=== PATIENT | male | born 1950 | race Caucasian/White ===

== ENCOUNTER → 2018-03-18 | Outpatient (CLI) | payer OTHER ==
[2018-03-18 12:13] LABS: HEMATOCRIT 38.7 % (42.0-52.0); HEMOGLOBIN 13.1 g/dl (13.5-17.5); MEAN CORPUSCULAR HEMOGLOBIN 30.7 pg (27.0-33.0); MEAN CORPUSCULAR HGB CONC 33.9 g/dl (32.0-36.5); MEAN CORPUSCULAR VOLUME 90.6 fl (80.0-96.0); PLATELET COUNT, AUTOMATED 239 10^3/uL (150-450); RED BLOOD COUNT 4.27 10^6/uL (4.30-6.10); RED CELL DISTRIBUTION WIDTH 13.1 % (11.5-14.5); WHITE BLOOD COUNT 7.3 10^3/uL (4.0-10.0)
[2018-03-18 12:46] LABS: ESTIMATED AVERAGE GLUCOSE 126 MG/DL (60-110); TESTOSTERONE 324 NG/DL (241-827)
[2018-03-18 12:52] LABS: ALBUMIN/GLOBULIN RATIO 1.29 (1.00-1.93); ALKALINE PHOSPHATASE 87 U/L (45-117); ALT/SGPT 13 U/L (12-78); ANION GAP 8 MEQ/L (8-16); AST/SGOT 16 U/L (7-37); BILIRUBIN,TOTAL 0.4 MG/DL (0.2-1.0); BLOOD UREA NITROGEN 29 MG/DL (7-18); CALCIUM LEVEL 8.6 MG/DL (8.8-10.2); CARBON DIOXIDE LEVEL 27 MEQ/L (21-32); CHLORIDE LEVEL 106 MEQ/L (98-107); CHOLESTEROL LEVEL 147 MG/DL (<200); CHOLESTEROL RISK RATIO 4.323 (<5); CREATININE FOR GFR 1.17 MG/DL (0.70-1.30); GLOMERULAR FILTRATION RATE > 60.0 (>49); GLUCOSE, FASTING 101 MG/DL (70-100); HDL CHOLESTEROL 34 MG/DL (>40); LDL CHOLESTEROL 76.8 MG/DL (<100); NON-HDL-C 113 MG/DL; POTASSIUM SERUM 4.9 MEQ/L (3.5-5.1); PROSTATIC SPECIFIC AG MONITOR 0.84 NG/ML (< 4.0); SODIUM LEVEL 141 MEQ/L (136-145); TOTAL PROTEIN 7.1 GM/DL (6.4-8.2); TRIGLYCERIDES LEVEL 181 MG/DL (<150)
== END ==
LOC: M LAB 11:14
DX: D64.9 Anemia, unspecified (principal); I10 Essential (primary) hypertension; R53.83 Other fatigue; R91.8 Other nonspecific abnormal finding of lung field; Z95.0 Presence of cardiac pacemaker
CPT/HCPCS: 71046

== ENCOUNTER → 2018-03-30 | Outpatient (CLI) | payer MEDICARE | LOC: M RAD 12:50 | DX: N20.0 Calculus of kidney (principal); R91.1 Solitary pulmonary nodule; F17.200 Nicotine dependence, unspecified, uncomplicated; Z95.5 Presence of coronary angioplasty implant and graft | CPT/HCPCS: 71250 ==

== ENCOUNTER → 2018-06-14 | Outpatient (CLI) | payer MEDICARE ==
[2018-06-15 09:49] LABS: RUBELLA IgG QUALITATIVE IMMUNE (IMMUNE)
[2018-06-16 08:11] LABS: RUBEOLA IgG ANTIBODY >300.0 AU/mL (Immune >29.9)
== END ==
LOC: M LAB 14:02
DX: Z02.1 Encounter for pre-employment examination (principal)
CPT/HCPCS: 86762

== ENCOUNTER → 2019-03-09 | Outpatient (CLI) | payer MEDICARE ==
[2019-03-09 12:02] LABS: HEMATOCRIT 39.2 % (42.0-52.0); HEMOGLOBIN 12.7 g/dl (13.5-17.5); MEAN CORPUSCULAR HEMOGLOBIN 30.6 pg (27.0-33.0); MEAN CORPUSCULAR HGB CONC 32.4 g/dl (32.0-36.5); MEAN CORPUSCULAR VOLUME 94.5 fl (80.0-96.0); PLATELET COUNT, AUTOMATED 240 10^3/uL (150-450); RED BLOOD COUNT 4.15 10^6/uL (4.30-6.10); WHITE BLOOD COUNT 7.2 10^3/uL (4.0-10.0)
--- NOTE | 2019-03-09 12:24 | REP ---
CHEST X-RAY: TWO VIEWS. HISTORY: Hypertension, COPD, fatigue. COMPARISON STUDY: March 18, 2018 FINDINGS: Lungs are somewhat hyperinflated and free of infiltrate. Pleural angles are sharp. Coronary artery stent material is visible. A pacemaker is seen in the right heart via the left side as before. Nipple silhouettes project near the bases bilaterally, unchanged. Pulmonary vasculature is not increased. The thoracic aorta is slightly tortuous. Cervical spine fusion hardware is visible at the top of the field of view. IMPRESSION: No active disease. Electronically Signed by Joe Jesus MD 03/09/2019 12:37 P
[2019-03-09 12:44] LABS: ALBUMIN 3.7 GM/DL (3.2-5.2); ALT/SGPT 12 U/L (12-78); BILIRUBIN,TOTAL 0.6 MG/DL (0.2-1.0); BLOOD UREA NITROGEN 25 MG/DL (7-18); CALCIUM LEVEL 8.7 MG/DL (8.8-10.2); CARBON DIOXIDE LEVEL 30 MEQ/L (21-32); CHLORIDE LEVEL 107 MEQ/L (98-107); CHOLESTEROL LEVEL 139 MG/DL (<200); CHOLESTEROL RISK RATIO 3.475 (<5); CREATININE FOR GFR 1.13 MG/DL (0.70-1.30); GLOMERULAR FILTRATION RATE > 60.0 (>49); GLUCOSE, FASTING 109 MG/DL (70-100); HDL CHOLESTEROL 40 MG/DL (>40); LDL CHOLESTEROL 77 MG/DL (<100); NON-HDL-C 99 MG/DL; POTASSIUM SERUM 4.8 MEQ/L (3.5-5.1); PROSTATIC SPECIFIC AG MONITOR 0.41 NG/ML (< 4.00); SODIUM LEVEL 142 MEQ/L (136-145); TESTOSTERONE 349 NG/DL (241-827); TOTAL PROTEIN 7.1 GM/DL (6.4-8.2); TRIGLYCERIDES LEVEL 111 MG/DL (<150)
[2019-03-09 13:10] LABS: HEMOGLOBIN A1c 5.8 %
--- NOTE | 2019-03-09 15:59 | ECGEPIP ---
Stationary ECG Study [facility] Test Date: 2019-03-09 Pat Name: ANTONINO PAREKH Department: Room: - Gender: M Garden Equipment Mechanic: MARTINE : 1950 Requested By: Masoud Mcghee Order Number: [id number] Reading MD: Celio Doe Measurements Intervals [place] Rate: 57 P: 42 MT: 147 QRS: 84 QRSD: 114 T: 145 QT: 391 QTc: 382 Interpretive Statements SINUS BRADYCARDIA Probable inferior NV Anterolateral NV of indeterminate age Similar to tracing done 03-18-18 Electronically Signed On 03-09-2019 11:31:52 EDT by Celio Doe
== END ==
LOC: M LAB 10:48
PROVIDERS: ATTEND Family Medicine
DX: I10 Essential (primary) hypertension (principal); R00.1 Bradycardia, unspecified; R53.83 Other fatigue; Z98.1 Arthrodesis status; Z95.5 Presence of coronary angioplasty implant and graft; Z95.0 Presence of cardiac pacemaker; I50.9 Heart failure, unspecified

== ENCOUNTER → 2019-09-18 | Outpatient (CLI) | payer MEDICARE ==
[2019-09-18 20:26] LABS: HEMATOCRIT 40.5 % (42.0-52.0); HEMOGLOBIN 13.1 g/dl (13.5-17.5); MEAN CORPUSCULAR HEMOGLOBIN 30.8 pg (27.0-33.0); MEAN CORPUSCULAR HGB CONC 32.3 g/dl (32.0-36.5); MEAN CORPUSCULAR VOLUME 95.1 fl (80.0-96.0); PLATELET COUNT, AUTOMATED 246 10^3/uL (150-450); RED BLOOD COUNT 4.26 10^6/uL (4.30-6.10); WHITE BLOOD COUNT 9.5 10^3/uL (4.0-10.0)
[2019-09-18 20:29] LABS: ALBUMIN 3.9 GM/DL (3.2-5.2); ALT/SGPT 16 U/L (12-78); BILIRUBIN,DIRECT < 0.1 MG/DL (0.0-0.2); BILIRUBIN,TOTAL 0.3 MG/DL (0.2-1.0); BLOOD UREA NITROGEN 31 MG/DL (7-18); CALCIUM LEVEL 9.1 MG/DL (8.8-10.2); CARBON DIOXIDE LEVEL 28 MEQ/L (21-32); CHLORIDE LEVEL 108 MEQ/L (98-107); CREATININE FOR GFR 1.42 MG/DL (0.70-1.30); GLOMERULAR FILTRATION RATE 52.9 (>49); GLUCOSE, FASTING 101 MG/DL (70-100); PHOSPHORUS LEVEL 2.6 MG/DL (2.5-4.9); POTASSIUM SERUM 4.8 MEQ/L (3.5-5.1); SODIUM LEVEL 144 MEQ/L (136-145); TOTAL PROTEIN 7.1 GM/DL (6.4-8.2)
== END ==
LOC: M WUC 16:05
PROVIDERS: ATTEND Podiatrist Foot & Ankle Surgery
DX: B35.1 Tinea unguium (principal); Z79.899 Other long term (current) drug therapy

== ENCOUNTER → 2019-10-24 | Outpatient (CLI) | payer MEDICARE ==
[2019-10-24 20:19] LABS: HEMOGLOBIN 12.5 g/dl (13.5-17.5); MEAN CORPUSCULAR HEMOGLOBIN 30.6 pg (27.0-33.0); MEAN CORPUSCULAR HGB CONC 31.3 g/dl (32.0-36.5); MEAN CORPUSCULAR VOLUME 97.8 fl (80.0-96.0); PLATELET COUNT, AUTOMATED 260 10^3/uL (150-450); RED BLOOD COUNT 4.09 10^6/uL (4.30-6.10); WHITE BLOOD COUNT 10.1 10^3/uL (4.0-10.0)
[2019-10-24 20:27] LABS: ALBUMIN 4.1 GM/DL (3.2-5.2); ALT/SGPT 14 U/L (12-78); BILIRUBIN,DIRECT 0.2 MG/DL (0.0-0.2); BILIRUBIN,TOTAL 0.6 MG/DL (0.2-1.0); BLOOD UREA NITROGEN 24 MG/DL (7-18); CALCIUM LEVEL 9.4 MG/DL (8.8-10.2); CARBON DIOXIDE LEVEL 31 MEQ/L (21-32); CHLORIDE LEVEL 105 MEQ/L (98-107); CREATININE FOR GFR 1.22 MG/DL (0.70-1.30); GLOMERULAR FILTRATION RATE > 60.0 (>49); GLUCOSE, FASTING 84 MG/DL (70-100); PHOSPHORUS LEVEL 3.1 MG/DL (2.5-4.9); POTASSIUM SERUM 4.4 MEQ/L (3.5-5.1); SODIUM LEVEL 141 MEQ/L (136-145); TOTAL PROTEIN 7.1 GM/DL (6.4-8.2)
== END ==
LOC: M WUC 15:54
PROVIDERS: ATTEND Podiatrist Foot & Ankle Surgery
DX: Z79.899 Other long term (current) drug therapy (principal); B35.1 Tinea unguium

== ENCOUNTER → 2021-03-11 | Outpatient (CLI) | payer MEDICARE ==
--- NOTE | 2021-03-11 14:50 | REP ---
INDICATION: HTN- LABS AND EKG FIRST COMPARISON: 03/09/2019. TECHNIQUE: PA/Lateral FINDINGS: Lungs: Clear, no infiltrate. Heart: Normal in size. Mediastinum: There is mild calcification and tortuosity of the thoracic aorta. Mediastinal silhouette otherwise unremarkable. Pleural angles: Unremarkable.. Bones and soft tissues: There are degenerative changes of the spine without compression deformity. Left single lead pacemaker is again noted. IMPRESSION: No acute pulmonary disease. <Electronically signed by Ton Cazares > 03/11/21 [id number]
[2021-03-11 14:58] LABS: HEMATOCRIT 39.8 % (42.0-52.0); HEMOGLOBIN 13.1 g/dl (13.5-17.5); MEAN CORPUSCULAR HEMOGLOBIN 30.5 pg (27.0-33.0); MEAN CORPUSCULAR HGB CONC 32.9 g/dl (32.0-36.5); MEAN CORPUSCULAR VOLUME 92.6 fl (80.0-96.0); PLATELET COUNT, AUTOMATED 233 10^3/uL (150-450)
--- NOTE | 2021-03-11 15:07 | ECGEPIP ---
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
[2021-03-11 15:30] LABS: BILIRUBIN,TOTAL 0.5 MG/DL (0.2-1.0); CALCIUM LEVEL 9.3 MG/DL (8.8-10.2); CHOLESTEROL RISK RATIO 3.829 (<5); CREATININE FOR GFR 1.33 MG/DL (0.70-1.30); GLOMERULAR FILTRATION RATE 56.8 (>49); POTASSIUM SERUM 4.9 MEQ/L (3.5-5.1); PROSTATIC SPECIFIC AG MONITOR 0.48 NG/ML (< 4.00); THYROID STIMULATING HORMONE 2.39 uIU/ML (0.358-3.740)
[2021-03-11 16:27] LABS: HEMOGLOBIN A1c 5.7 %
== END ==
LOC: M LAB 14:12
PROVIDERS: ATTEND Family Medicine
DX: J44.9 Chronic obstructive pulmonary disease, unspecified (principal); I10 Essential (primary) hypertension; R53.83 Other fatigue; Z95.0 Presence of cardiac pacemaker

== ENCOUNTER 2022-04-25 12:08 | Emergency (ER) | payer MEDICARE ==
[~2022-04-25] VITALS: Ht 167.6 cm; Wt 68.2 kg
[2022-04-25] MEDS ORDERED: FLUO40CA (12:30)
[2022-04-25] MEDS ORDERED: ATOR40TA75 (12:30)
[2022-04-25] MEDS ORDERED: CARV25TA (12:30)
[2022-04-25] MEDS ORDERED: ERGO500029 (12:30)
[2022-04-25] MEDS ORDERED: BUPR-71 (12:30)
[2022-04-25] MEDS ORDERED: MELO7.5T35 (12:30)
[2022-04-25] MEDS ORDERED: GABA800T4 (12:30)
[2022-04-25] MEDS ORDERED: LISI20TA35 (12:30)
[2022-04-25] MEDS ORDERED: CLOP75TA2 (12:30)
[2022-04-25 14:11] LABS: BASO % 0.4 % (0.0-1.0); EOS # 0.1 10^3/uL (0.0-0.5); EOS % 0.8 % (0.0-3.0); HEMATOCRIT 38.4 % (42.0-52.0); HEMOGLOBIN 12.9 g/dl (13.5-17.5); LYMPH # 1.4 10^3/uL (1.5-5.0); LYMPH % 16.6 % (24.0-44.0); MEAN CORPUSCULAR HEMOGLOBIN 30.9 pg (27.0-33.0); MEAN CORPUSCULAR HGB CONC 33.6 g/dl (32.0-36.5); MEAN CORPUSCULAR VOLUME 91.9 fl (80.0-96.0); MONO # 0.8 10^3/uL (0.0-0.8); MONO % 9.6 % (2.0-8.0); NEUTROPHILS # 6.1 10^3/uL (1.5-8.5); NEUTROPHILS % 72.2 % (36.0-66.0); PLATELET COUNT, AUTOMATED 211 10^3/uL (150-450); RED BLOOD COUNT 4.18 10^6/uL (4.30-6.10); WHITE BLOOD COUNT 8.4 10^3/uL (4.0-10.0)
[2022-04-25 14:21] LABS: INR 0.94
[2022-04-25 14:22] LABS: PARTIAL THROMBOPLASTIN TIME 27.4 SECONDS (25.9-37.0)
[2022-04-25 14:37] LABS: CALCIUM LEVEL 9.5 MG/DL (8.8-10.2); CREATININE FOR GFR 1.38 MG/DL (0.70-1.30); GLOMERULAR FILTRATION RATE 54.2 (>42); POTASSIUM SERUM 5.1 MEQ/L (3.5-5.1)
[2022-04-25] MEDS ORDERED: NS 1,000 ML IV ONE (15:20)
[2022-04-25] MEDS ORDERED: ISOVUE-370 76% 100ML VIAL As Ordered ONE (15:52)
[2022-04-25] MEDS ORDERED: HEPARIN DRIP 25,000 UNITS in IV 1 EA IV SCH (19:15)
[2022-04-25] MEDS ORDERED: HEPARIN SOD (PORCINE) 5000UNITS/ML 1ML VIAL/SYRINGE IV ONE (19:15)
[2022-04-25] MEDS ORDERED: GABAPENTIN 400MG CAP PO ONE (19:55)
[2022-04-25 20:30] VITALS: BP 125/59
== END 2022-04-25 21:04 | disposition short-term general hospital (02) ==
LOC: M ED 12:08 → EDBD 12:08 → M ED 21:04
DX: J44.9 Chronic obstructive pulmonary disease, unspecified (principal); M51.9 Unspecified thoracic, thoracolumbar and lumbosacral intervertebral disc disorder; I25.2 Old myocardial infarction; Z79.899 Other long term (current) drug therapy; Z79.01 Long term (current) use of anticoagulants; F17.210 Nicotine dependence, cigarettes, uncomplicated; F12.20 Cannabis dependence, uncomplicated
CPT/HCPCS: 72131; 75635; 80048; 85025; 85610; 85730; 87426; 93041; 96361; 96365; 99285; J1644; Q9967

== ENCOUNTER 2022-05-09 13:18 | Inpatient (IN) | payer MEDICARE ==
[~2022-05-09] VITALS: Ht 167.6 cm; Wt 74.5 kg
[~2022-05-09 13:18] MED LIST: ATOR40TA75 PO; BUPR-71 PO; CARV25TA PO; CLOP75TA2 PO; ERGO500029 PO; FLUO40CA PO; GABA800T4 PO; LISI20TA35 PO; MELO7.5T35
[2022-05-09 13:49] LABS: BASO # 0.1 10^3/uL (0.0-0.2); BASO % 0.6 % (0.0-1.0); EOS # 0.3 10^3/uL (0.0-0.5); EOS % 3.1 % (0.0-3.0); HEMOGLOBIN 9.5 g/dl (13.5-17.5); LYMPH # 1.7 10^3/uL (1.5-5.0); LYMPH % 16.6 % (24.0-44.0); MEAN CORPUSCULAR HEMOGLOBIN 30.1 pg (27.0-33.0); MEAN CORPUSCULAR HGB CONC 31.7 g/dl (32.0-36.5); MEAN CORPUSCULAR VOLUME 94.9 fl (80.0-96.0); MONO # 0.7 10^3/uL (0.0-0.8); MONO % 6.6 % (2.0-8.0); NEUTROPHILS # 7.4 10^3/uL (1.5-8.5); NEUTROPHILS % 72.6 % (36.0-66.0); PLATELET COUNT, AUTOMATED 319 10^3/uL (150-450); RED BLOOD COUNT 3.16 10^6/uL (4.30-6.10); WHITE BLOOD COUNT 10.2 10^3/uL (4.0-10.0)
[2022-05-09 14:06] LABS: ERYTHROCYTE SEDIMENTATION RATE 65 mm/hr (0-20)
[2022-05-09 14:30] LABS: BILIRUBIN,DIRECT 0.1 MG/DL (0.0-0.2); BILIRUBIN,TOTAL 0.3 MG/DL (0.2-1.0); C REACTIVE PROTEIN QUANTITATIV 1.35 MG/DL (0.00-0.30); CALCIUM LEVEL 8.4 MG/DL (8.8-10.2); CREATININE FOR GFR 2.35 MG/DL (0.70-1.30); GLOMERULAR FILTRATION RATE 29.3 (>42); POTASSIUM SERUM 5.6 MEQ/L (3.5-5.1); TOTAL PROTEIN 6.4 GM/DL (6.4-8.2)
[2022-05-09] MEDS ORDERED: NS 500 ML IV ONE (15:20)
[2022-05-09] MEDS ORDERED: NS 1,000 ML IV SCH (15:20)
[2022-05-09 16:44] LABS: RSV AMPLIFICATION NEGATIVE (NEGATIVE)
[2022-05-09] MEDS ORDERED: HEPARIN SOD (PORCINE) 5000UNITS/ML 1ML VIAL/SYRINGE SC SCH (17:20)
[2022-05-09] MEDS ORDERED: ACETAMINOPHEN TAB 650MG DOSE (2X325MG) PO PRN (17:20)
[2022-05-09] MEDS: NS 1,000 ML IV SCH (17:51)
[2022-05-09] MEDS ORDERED: FLUCONAZOLE 50MG TABLET PO ONE (18:00)
[2022-05-09] MEDS ORDERED: HOME MED LIST COMPLETE! XX SCH (18:15)
[2022-05-09] MEDS: CARVedilol 12.5 MG TAB PO SCH (19:49)
[2022-05-09] MEDS: SENOKOT S TAB PO SCH (19:49)
[2022-05-09] MEDS: NORCO, ANEXSIA 5/325MG TABLET (HYDROcodone/ACETAMINOPHEN) PO PRN (19:51)
[2022-05-09] MEDS: buPROPion **SR TABLET** (ZYBAN) 150MG PO SCH (21:03)
[2022-05-09] MEDS: NYSTATIN 100,000 UNITS/GM TOPICAL PWD 15 GM TOP SCH (21:03)
[2022-05-09] MEDS: HEPARIN SOD (PORCINE) 5000UNITS/ML 1ML VIAL/SYRINGE SQ SCH (21:06)
[2022-05-09 22:58] VITALS: BP 95/43
[2022-05-09] MEDS: GABAPENTIN 400MG CAP PO SCH (23:25)
[2022-05-10] MEDS ORDERED: ACETAMINOPHEN TAB 650MG DOSE (2X325MG) PO PRN
[2022-05-10] MEDS: HEPARIN SOD (PORCINE) 5000UNITS/ML 1ML VIAL/SYRINGE SQ SCH ×3 (06:24→21:00)
[2022-05-10] MEDS: NS 1,000 ML IV SCH (06:24)
[2022-05-10 06:36] LABS: HEMATOCRIT 28.5 % (42.0-52.0); HEMOGLOBIN 9.3 g/dl (13.5-17.5); MEAN CORPUSCULAR HEMOGLOBIN 30.1 pg (27.0-33.0); MEAN CORPUSCULAR HGB CONC 32.6 g/dl (32.0-36.5); MEAN CORPUSCULAR VOLUME 92.2 fl (80.0-96.0); PLATELET COUNT, AUTOMATED 301 10^3/uL (150-450); RED BLOOD COUNT 3.09 10^6/uL (4.30-6.10); WHITE BLOOD COUNT 7.5 10^3/uL (4.0-10.0)
[2022-05-10 06:59] LABS: CREATININE FOR GFR 1.77 MG/DL (0.70-1.30); GLOMERULAR FILTRATION RATE 40.7 (>42); MAGNESIUM LEVEL 2.2 MG/DL (1.8-2.4); POTASSIUM SERUM 5.1 MEQ/L (3.5-5.1)
[2022-05-10 08:00] VITALS: BP 120/59
[2022-05-10] MEDS: NYSTATIN 100,000 UNITS/GM TOPICAL PWD 15 GM TOP SCH ×2 (09:12→21:00)
[2022-05-10] MEDS: buPROPion **SR TABLET** (ZYBAN) 150MG PO SCH ×2 (09:12→20:21)
[2022-05-10] MEDS: GABAPENTIN 400MG CAP PO SCH ×3 (09:12→20:18)
[2022-05-10] MEDS: SENOKOT S TAB PO SCH ×2 (09:13→20:18)
[2022-05-10] MEDS: FLUoxetine 20MG CAP PO SCH (09:13)
[2022-05-10] MEDS: ATORVASTATIN 20 MG TAB PO SCH (09:13)
[2022-05-10] MEDS: CLOPIDOGREL 75 MG TAB PO SCH (09:13)
[2022-05-10] MEDS: CARVedilol 12.5 MG TAB PO SCH ×2 (09:15→20:18)
[2022-05-10 11:08] VITALS: BP 114/78
[2022-05-10 14:00] VITALS: BP 112/60
[2022-05-10 19:57] VITALS: BP 124/59
[2022-05-10] MEDS: NORCO, ANEXSIA 5/325MG TABLET (HYDROcodone/ACETAMINOPHEN) PO PRN (20:22)
[2022-05-11 04:35] VITALS: BP 114/58
[2022-05-11] MEDS: HEPARIN SOD (PORCINE) 5000UNITS/ML 1ML VIAL/SYRINGE SQ SCH (05:19)
[2022-05-11 06:37] LABS: HEMOGLOBIN 9.7 g/dl (13.5-17.5); MEAN CORPUSCULAR HEMOGLOBIN 30.7 pg (27.0-33.0); MEAN CORPUSCULAR HGB CONC 32.3 g/dl (32.0-36.5); MEAN CORPUSCULAR VOLUME 94.9 fl (80.0-96.0); PLATELET COUNT, AUTOMATED 303 10^3/uL (150-450); RED BLOOD COUNT 3.16 10^6/uL (4.30-6.10); WHITE BLOOD COUNT 9.5 10^3/uL (4.0-10.0)
[2022-05-11 07:04] LABS: CALCIUM LEVEL 8.8 MG/DL (8.8-10.2); CREATININE FOR GFR 1.35 MG/DL (0.70-1.30); GLOMERULAR FILTRATION RATE 55.6 (>42); MAGNESIUM LEVEL 1.9 MG/DL (1.8-2.4)
[2022-05-11] MEDS ORDERED: CLOT1CRE56 TOP (07:35)
[2022-05-11] MEDS ORDERED: NYST10006 TOP (07:35)
[2022-05-11] MEDS ORDERED: FLUC150T9 PO (07:35)
[2022-05-11] MEDS ORDERED: HYDR-3715 PO (07:36)
[2022-05-11] MEDS: SENOKOT S TAB PO SCH (08:19)
[2022-05-11] MEDS: NYSTATIN 100,000 UNITS/GM TOPICAL PWD 15 GM TOP SCH (08:19)
[2022-05-11] MEDS: buPROPion **SR TABLET** (ZYBAN) 150MG PO SCH (08:19)
[2022-05-11] MEDS: GABAPENTIN 400MG CAP PO SCH (08:19)
[2022-05-11] MEDS: CLOPIDOGREL 75 MG TAB PO SCH (08:20)
[2022-05-11] MEDS: FLUoxetine 20MG CAP PO SCH (08:20)
[2022-05-11] MEDS: ATORVASTATIN 20 MG TAB PO SCH (08:20)
[2022-05-11 08:21] VITALS: BP 124/68
[2022-05-11] MEDS: CARVedilol 12.5 MG TAB PO SCH (08:21)
[2022-05-12] MEDS ORDERED: FLUCONAZOLE 50MG TABLET PO ONE (09:00)
== END 2022-05-11 10:23 | disposition home or self-care (01) | DRG 683 ==
LOC: EDBD 13:18 → M ED 13:18 → M ED INP 15:55 → ENRESERVTM 18:30 → ENRESERVDT 18:30 → ENRESERV 21:56 → M PCU 22:53 → M MSPAV 05-10 12:15
PROVIDERS: ADMIT Internal Medicine Nephrology; ATTEND Internal Medicine Nephrology
DX: N17.9 Acute kidney failure, unspecified (principal); I50.22 Chronic systolic (congestive) heart failure; L30.4 Erythema intertrigo; I73.9 Peripheral vascular disease, unspecified; Z95.828 Presence of other vascular implants and grafts; I25.2 Old myocardial infarction; Z95.5 Presence of coronary angioplasty implant and graft; I11.0 Hypertensive heart disease with heart failure; E78.5 Hyperlipidemia, unspecified; J44.9 Chronic obstructive pulmonary disease, unspecified; R29.6 Repeated falls; Z66 Do not resuscitate; Z95.810 Presence of automatic (implantable) cardiac defibrillator; Z96.641 Presence of right artificial hip joint; Z87.891 Personal history of nicotine dependence; E87.5 Hyperkalemia; K59.00 Constipation, unspecified; Z20.822 Contact with and (suspected) exposure to COVID-19; Z79.899 Other long term (current) drug therapy; B37.2 Candidiasis of skin and nail; I25.10 Atherosclerotic heart disease of native coronary artery without angina pectoris; I25.5 Ischemic cardiomyopathy; Z90.79 Acquired absence of other genital organ(s)

== ENCOUNTER → 2023-02-08 | Outpatient (CLI) | payer MEDICARE ==
[~2023-02-08] MED LIST changes: +CLOT1CRE56 TOP; +FLUC150T9 PO; +HYDR-3715 PO; +MELO7.5T35 PO; +NYST10006 TOP
== END ==
LOC: M LABSMTC 09:02
PROVIDERS: ATTEND Anesthesiology
DX: Z11.52 Encounter for screening for COVID-19 (principal)

== ENCOUNTER 2023-02-11 07:48 | Day surgery (SDC) | payer MEDICARE ==
[~2023-02-11] VITALS: Ht 167.6 cm; Wt 65.8 kg
[~2023-02-11 07:48] MED LIST changes: +BSS IRRIG/VANCO(10MG)/TOBRA(5MG)/EPINEPH(1:1000-0.5CC)500ML BAG-ORONLY IR ONE; +CEFUROXIME 1MG/0.1ML INTRACAMERAL INJ As Ordered ONE; +LIDOCAINE 1% SDV 5ML VIAL As Ordered ONE; +LIDOCAINE 3.5 % 1ML OPHTH TOPICAL GEL OU ONE; +OFLOXACIN 0.3 % (OCUFLOX) OPTH SOL 5ML OS ONE; +PHENYLEPHRINE 10% OPHTH SOL 5ML OS PRN
[2023-02-11] MEDS ORDERED: fentaNYL 100 MCG/2 ML INJECTION As Ordered ONE (07:57)
[2023-02-11] MEDS ORDERED: MIDAZOLAM INJ 2MG/2ML VIAL As Ordered ONE (07:57)
[2023-02-11] MEDS ORDERED: NITR0.4S14 SL (11:23)
[2023-02-11] MEDS: CYCLOPENTOLATE 1% OPHTH SOLN 2ML BTL OS SCH ×2 (11:33→11:34)
[2023-02-11] MEDS: PHENYLEPHRINE 2.5% OPHTH SOL 2ML OS SCH ×2 (11:33→11:34)
[2023-02-11] MEDS: TROPICAMIDE 1% OPHTH SOLN 15ML OS SCH (11:34)
[2023-02-11 12:45] VITALS: BP 108/71
== END 2023-02-11 12:55 | disposition home or self-care (01) ==
LOC: M SDC 07:48
PROVIDERS: ATTEND Ophthalmology
DX: H25.12 Age-related nuclear cataract, left eye (principal); R07.9 Chest pain, unspecified; I25.2 Old myocardial infarction; Z95.2 Presence of prosthetic heart valve; Z95.0 Presence of cardiac pacemaker; I10 Essential (primary) hypertension; J44.9 Chronic obstructive pulmonary disease, unspecified; G47.30 Sleep apnea, unspecified; Z87.891 Personal history of nicotine dependence; Z79.899 Other long term (current) drug therapy
CPT/HCPCS: 66984; 92015; J0697; J2250; J3010; V2632

== ENCOUNTER → 2023-04-02 | Outpatient (CLI) | payer MEDICARE ==
[~2023-04-02] MED LIST changes: -BSS IRRIG/VANCO(10MG)/TOBRA(5MG)/EPINEPH(1:1000-0.5CC)500ML BAG-ORONLY IR ONE; -CEFUROXIME 1MG/0.1ML INTRACAMERAL INJ As Ordered ONE; -LIDOCAINE 1% SDV 5ML VIAL As Ordered ONE; -LIDOCAINE 3.5 % 1ML OPHTH TOPICAL GEL OU ONE; +NITR0.4S14 SL; -OFLOXACIN 0.3 % (OCUFLOX) OPTH SOL 5ML OS ONE; -PHENYLEPHRINE 10% OPHTH SOL 5ML OS PRN
[2023-04-02 14:26] LABS: HEMATOCRIT 39.8 % (42.0-52.0); MEAN CORPUSCULAR HEMOGLOBIN 30.2 pg (27.0-33.0); MEAN CORPUSCULAR HGB CONC 32.7 g/dl (32.0-36.5); MEAN CORPUSCULAR VOLUME 92.3 fl (80.0-96.0); PLATELET COUNT, AUTOMATED 235 10^3/uL (150-450); RED BLOOD COUNT 4.31 10^6/uL (4.30-6.10); WHITE BLOOD COUNT 7.4 10^3/uL (4.0-10.0)
[2023-04-02 14:33] LABS: INR 0.96
[2023-04-02 14:45] LABS: HEMOGLOBIN A1c 5.6 % (4.0-6.0)
[2023-04-02 14:52] LABS: ALBUMIN 3.7 G/DL (3.2-5.2); BILIRUBIN,TOTAL 0.5 MG/DL (0.3-1.2); CALCIUM LEVEL 9.4 MG/DL (8.3-10.6); CHOLESTEROL RISK RATIO 4.4 (<5); CREATININE FOR GFR 1.34 MG/DL (0.70-1.30); GLOMERULAR FILTRATION RATE 55.9 (>42); HDL CHOLESTEROL 35.2 MG/DL (>40); LDL CHOLESTEROL 68.6 MG/DL (<100); NON-HDL-C 119.8 MG/DL; POTASSIUM SERUM 4.6 MMOL/L (3.5-5.1); TOTAL PROTEIN 6.7 G/DL (5.7-8.2)
[2023-04-02 14:55] LABS: THYROID STIMULATING HORMONE 2.808 uIU/ML (0.55-4.78)
== END ==
LOC: M RAD 13:38
PROVIDERS: ATTEND Family Medicine
DX: Z01.818 Encounter for other preprocedural examination (principal); I10 Essential (primary) hypertension; J44.9 Chronic obstructive pulmonary disease, unspecified; Z79.899 Other long term (current) drug therapy

== ENCOUNTER → 2023-10-05 | Outpatient (CLI) | payer MEDICARE ==
[~2023-10-05] MED LIST changes: +ASPI81TAEC PO; +CARV6.25 PO; +ENTR1TAB PO; +FARX1TAB3 PO; +FLUO-96 PO; +FURO20TA2 PO; +GABA-282 PO; +LEVO750T14 PO; +MAGN400T35 PO; +POTA-165 PO
== END ==
LOC: M RAD 10:45
PROVIDERS: ATTEND Family Medicine
DX: I11.9 Hypertensive heart disease without heart failure (principal); M19.011 Primary osteoarthritis, right shoulder